=== PATIENT | female | born 1955 | race Caucasian/White ===

== ENCOUNTER 2019-12-30 20:27 | Emergency (ER) | payer BC, OTHER ==
[2019-12-30 21:41] LABS: ANION GAP 13.8 mEq/L (7-13); CHLORIDE,CL 104 mmol/L (98-107); SODIUM,NA 142 mmol/L (136-145)
--- NOTE | 2019-12-30 21:53 | EDM.PDOC ---
ED HPI GENERAL MEDICAL PROBLEM - General Chief Complaint: Neuro Symptoms/Deficits Stated Complaint: LIGHT HEADED, SHORT OF BREATH, SHAKEY Time Seen by Provider: 12/30/19 20:40 Source of Information: Reports: Patient History Limitations: Reports: No Limitations - History of Present Illness INITIAL COMMENTS - FREE TEXT/NARRATIVE: ED with c/o of dizzy spell at home while sitting at home playing on phone, worse when looked up and tried to get out of chair. Did not fall, has had milder symptoms when blood sugars low. Ate approximately 30minutes prior. lasted only a couple minutes then resolved and no further sx. no smoker. Caffeine 3-4 cups per day of coffee and soda. no weakness. No fever, No COVID exposure known. No urinary sx. No chest pain, Hx heart murmer. Recent echo and told it was stable. Treatments SALES ARCHITECT: Reports: Other (see below) Other Treatments SALES ARCHITECT: none - Related Data Allergies Allergy/AdvReac Type Severity Reaction Status Date / Time No Known Allergies Allergy Verified 12/30/19 21:08 Home Meds: Home Meds Levothyroxine [Synthroid] 50 mcg PO ACBREAKFAST 12/30/19 [History] atorvaSTATin [Lipitor] 20 mg PO DAILY 12/30/19 [History] Past Medical History HEENT History: Reports: Impaired Vision Other HEENT History: wears corrective lenses Cardiovascular History: Reports: Heart Murmur, High Cholesterol Respiratory History: Reports: None Gastrointestinal History: Reports: None Genitourinary History: Reports: None Neurological History: Reports: None Endocrine/Metabolic History: Reports: Hypothyroidism, Other (See Below) Other Endocrine/Metabolic History: hypoglycemia. Jena's Social & Family History - Family History Family Medical History: Noncontributory - Tobacco Use Tobacco Use Status *Q: Unknown Ever Used Tobacco - Caffeine Use Caffeine Use: Reports: Coffee, Soda - Recreational Drug Use Recreational Drug Use: No ED ROS GENERAL - Review of Systems Review Of Systems: Comprehensive ROS is negative, except as noted in HPI. ED EXAM, NEURO - Physical Exam Exam: See Below Exam Limited By: No Limitations General Appearance: Alert, No Apparent Distress, Anxious Eye Exam: Bilateral Eye: EOMI Ears: Normal External Exam, Normal Canal, Normal TMs Nose: Normal Inspection, Normal Mucosa Throat/Mouth: Normal Inspection, Normal Lips, Normal Voice, No Airway Compromise Head Exam: Atraumatic, Normocephalic Neck: Normal Inspection, Full Range of Motion Respiratory/Chest: No Respiratory Distress, Lungs Clear, Normal Breath Sounds Cardiovascular: Normal Peripheral Pulses, Regular Rate, Rhythm, No Edema GI/Abdominal: Normal Bowel Sounds, Soft Neurological: Alert, Normal Mood/Affect, No Motor/Sensory Deficits, Oriented x 3 Extremities: Normal Inspection. No: Pedal Edema Psychiatric: Anxious Skin Exam: Warm, Dry, Intact, Normal Color Course - Vital Signs Last Recorded V/S: Last Vital Signs Temp 98.1 F 12/30/19 20:37 Pulse 92 12/30/19 20:37 Resp 16 12/30/19 20:37 BP 169/99 H 12/30/19 20:37 Pulse Ox 98 12/30/19 20:37 Orthostatic Blood Pressure [ 150/90 Standing] Orthostatic Blood Pressure [ 141/99 Sitting] Orthostatic Blood Pressure [ 147/88 Supine] - Orders/Labs/Meds Labs: Laboratory Tests 12/30/19 12/30/19 12/30/19 Range/Units 20:47 20:58 20:58 WBC 6.8 (5.0-10.0) 10^3/uL RBC 4.62 (4.2-5.4) 10^6/uL Hgb 13.9 (12.0-16.0) g/dL Hct 40.7 (37.0-47.0) % MCV 88.1 (80-100) fL MCH 30.1 (27.0-34.0) pg MCHC 34.2 (33.0-35.0) g/dL Plt Count 226 (150-450) 10^3/uL Neut % (Auto) 58.6 (42.2-75.2) % Lymph % (Auto) 33.7 (20.5-50.1) % [place] % (Auto) 6.4 (2-8) % Eos % (Auto) 1.2 (1.0-3.0) % Baso % (Auto) 0.1 (0.0-1.0) % Sodium 142 (136-145) mmol/L Potassium 3.8 (3.5-5.1) mmol/L Chloride 104 (98-107) mmol/L Carbon Dioxide 28 (21-32) mmol/L Anion Gap 13.8 H (7-13) mEq/L BUN 20 H (7-18) mg/dL Creatinine 0.74 (0.55-1.02) mg/dL Est Cr Clr Drug Dosing 62.34 mL/min Estimated GFR (MDRD) > 60 BUN/Creatinine Ratio 27.0 (No establ ref range) Glucose 114 H (74-99) mg/dL POC Glucose 128 H (70-105) mg/dl Calcium 9.4 (8.5-10.1) mg/dL Total Bilirubin 0.2 (0.2-1.0) mg/dL AST 16 (15-37) U/L ALT 35 (14-59) U/L Alkaline Phosphatase 78 (46-116) U/L Troponin I < 0.017 (0.000-0.056) ng/mL Total Protein 7.4 (6.4-8.2) g/dL Albumin 3.8 (3.4-5.0) g/dL Globulin 3.6 Albumin/Globulin Ratio 1.1 Departure - Departure Time of Disposition: 21:50 Disposition: Home, Self-Care 01 Condition: Good Clinical Impression: Dizziness of unknown etiology - Discharge Information *PRESCRIPTION DRUG MONITORING PROGRAM REVIEWED*: No *COPY OF PRESCRIPTION DRUG MONITORING REPORT IN PATIENT DORITA: No Instructions: Dizziness, [id number] Referrals: Myesha Dowling NP [Primary Care Provider] - Forms: ED Department Discharge Additional Instructions: Change positions slowly stay hydrated. continue to decrease caffeine intake follow up with primary care urgent follow up if worsening symptoms, weakness Sepsis Event Note (ED) - Evaluation Sepsis Screening Result: No Definite Risk - Focused Exam Vital Signs: Vital Signs Temp Pulse Resp BP Pulse Ox 12/30/19 20:37 98.1 F 92 16 169/99 H 98
== END 2019-12-30 22:00 | disposition home or self-care (01) ==
LOC: DL.ED 20:27
DX: R42 Dizziness and giddiness (principal); E78.00 Pure hypercholesterolemia, unspecified; E03.9 Hypothyroidism, unspecified; Z79.899 Other long term (current) drug therapy
CPT/HCPCS: 36415; 80053; 82962; 84484; 85025; 93005; 99282; 99284-25

== ENCOUNTER 2020-08-28 15:49 | Emergency (ER) | payer BC, OTHER ==
--- NOTE | 2020-08-28 16:36 | EDM.PDOC ---
Scribed by Doreen Peterson 08/28/20 0521 for Sunday Merlos MD ED HPI GENERAL MEDICAL PROBLEM - General Chief Complaint: Lower Extremity Injury/Pain Stated Complaint: POSSIBLE BROKEN ANKLE Time Seen by Provider: 08/28/20 15:55 Source of Information: Reports: Patient, RN, RN Notes Reviewed History Limitations: Reports: No Limitations - History of Present Illness INITIAL COMMENTS - FREE TEXT/NARRATIVE: Patient presents to ED by POV stating that she stepped in a hole with her left ankle twisting it. She heard a loud crack. No other injury. Left ankle is now to o painful to bear wt on. Onset: Today Duration: Getting Worse Location: Reports: Lower Extremity, Left Quality: Reports: Ache Severity: Severe Improves with: Reports: None Worsens with: Reports: None Associated Symptoms: Reports: No Other Symptoms Left Ankle Pain Score (Numeric/FACES): 6 - Related Data Allergies Allergy/AdvReac Type Severity Reaction Status Date / Time No Known Allergies Allergy Verified 08/28/20 16:03 Home Meds: Home Meds Levothyroxine [Synthroid] 50 mcg PO ACBREAKFAST 12/30/19 [History] atorvaSTATin [Lipitor] 20 mg PO DAILY 12/30/19 [History] Sertraline HCl 50 mg PO DAILY 08/28/20 [History] Past Medical History HEENT History: Reports: Impaired Vision Other HEENT History: wears corrective lenses Cardiovascular History: Reports: Heart Murmur, High Cholesterol Respiratory History: Reports: None Gastrointestinal History: Reports: None Genitourinary History: Reports: None Neurological History: Reports: None Endocrine/Metabolic History: Reports: Hypothyroidism, Other (See Below) Other Endocrine/Metabolic History: hypoglycemia. Jena's Social & Family History - Family History Family Medical History: No Pertinent Family History - Caffeine Use Caffeine Use: Reports: Coffee, Soda Review of Systems - Review of Systems Review Of Systems: Comprehensive ROS is negative, except as noted in HPI. ED EXAM, GENERAL - Physical Exam Exam: See Below Exam Limited By: No Limitations General Appearance: Alert, WD/WN, No Apparent Distress Throat/Mouth: Normal Voice, No Airway Compromise Head: Atraumatic, Normocephalic Neck: Normal Inspection, Full Range of Motion Respiratory/Chest: No Respiratory Distress Cardiovascular: Regular Rate, Rhythm Extremities: No Pedal Edema, Joint Swelling (Left lateral ankle), Limited Range of Motion (Left ankle due to pain). No: Increased Warmth, Mottled, Pallor, Redness Neurological: Alert, Oriented Psychiatric: Normal Mood Skin Exam: Warm, Dry, Intact, Normal Color, No Rash ED TRAUMA EXTREMITY PROCEDURES - Splinting Left Lower Extremity Splint Site: Left Ankle Pre-Procedure NV Status: Normal Post-Procedure NV Status: Normal Splint Material: Boot Orthotic Splint Design: Other (Boot) Applied & Form Fitted By: Nurse Provider Post-Splint Application NV Check: NV Status Normal, Good Position Complications: No Course - Vital Signs Last Recorded V/S: Last Vital Signs Temp 98.3 F 08/28/20 16:04 Pulse 88 08/28/20 16:04 Resp 18 08/28/20 16:04 BP 172/93 H 08/28/20 16:04 Pulse Ox 96 08/28/20 16:04 - Orders/Labs/Meds Orders: Active Orders 24 hr Category Date Time Status Ankle Min 3V Lt [CR] Stat Exams 08/28/20 15:58 Taken - Radiology Interpretation Free Text/Narrative:: XR Left Ankle: distal fibula avulsion fracture, see Rad. report. - Re-Assessments/Exams Free Text/Narrative Re-Assessment/Exam: 08/28/20 Pt declined pain medication. Departure - Departure Time of Disposition: 16:28 Disposition: Home, Self-Care 01 Condition: Good Clinical Impression: Closed avulsion fracture of distal end of left fibula Qualifiers: Encounter type: initial encounter Qualified Code(s): S82.832A - Other fracture of upper and lower end of left fibula, initial encounter for closed fracture - Discharge Information *PRESCRIPTION DRUG MONITORING PROGRAM REVIEWED*: Not Applicable *COPY OF PRESCRIPTION DRUG MONITORING REPORT IN PATIENT DORITA: Not Applicable Instructions: Nondisplaced Fibular Ankle Fracture Treated With Immobilization, Adult, Crutch Use, Adult, [id number] Forms: ED Department Discharge Additional Instructions: Use left ankle boot splint and crutches to minimize weight bearing on left foot until clear to bear weight by the costume mistress. Rest, ice pack, and elevate left foot to reduce pain and swelling. On August 30, call [phone] to schedule a podiatry appointment with Dr. Tyler Carrasco. Sepsis Event Note (ED) - Focused Exam Vital Signs: Vital Signs Temp Pulse Resp BP Pulse Ox 08/28/20 16:04 98.3 F 88 18 172/93 H 96 - My Orders Last 24 Hours: My Active Orders 08/28/20 15:58 Ankle Min 3V Lt [CR] Stat - Assessment/Plan Last 24 Hours: My Active Orders 08/28/20 15:58 Ankle Min 3V Lt [CR] Stat I have read and agree with the documentation that has been completed regarding this visit. By signing this record, I attest that the documentation was completed in my physical presence and is an accurate record of the encounter.
--- NOTE | 2020-08-28 16:52 | CR ---
PROCEDURE INFORMATION: Exam: XR Left Ankle Exam date and time: 08/28/2020 4:07 PM Age: 65 years old Clinical indication: Other: Fell in hole/pain; Additional info: Left ankle injury TECHNIQUE: Imaging protocol: XR Left ankle. Views: 3 or more views. COMPARISON: No relevant prior studies available. FINDINGS: Bones/joints: Small, minimally displaced avulsion fracture at the inferior tip the lateral malleolus. No dislocation. Normal bone mineralization. Joint spaces are maintained. Ankle mortise is symmetric. No joint effusion. Soft tissues: Marked soft tissue swelling over the lateral malleolus. No radiopaque foreign body. IMPRESSION: 1. Small, minimally displaced avulsion fracture at the inferior tip the lateral malleolus. 2. Marked soft tissue swelling over the lateral malleolus.
== END 2020-08-28 16:40 | disposition home or self-care (01) ==
LOC: DL.ED 15:49
DX: S82.832A Other fracture of upper and lower end of left fibula, initial encounter for closed fracture (principal); E78.00 Pure hypercholesterolemia, unspecified; E03.9 Hypothyroidism, unspecified; Z79.899 Other long term (current) drug therapy; X50.1XXA Overexertion from prolonged static or awkward postures, initial encounter
CPT/HCPCS: 73610-LT; 99283; 99284